=== PATIENT | female | born 1990 | race Caucasian/White ===

== ENCOUNTER 2021-12-28 09:30 | Emergency (ER) | payer OTHER ==
[2021-12-28] MEDS ORDERED: BACLOFEN 10MG T10 MG PO (13:08)
[2021-12-28] MEDS ORDERED: NAPROXEN500 MG PO (13:08)
== END 2021-12-28 14:08 | disposition home or self-care (01) ==
LOC: FER 09:30
DX: M77.8 Other enthesopathies, not elsewhere classified (principal)
CPT/HCPCS: 96372; 99283; J1100; J1885